=== PATIENT | male | born 1955 | race Caucasian/White ===

== ENCOUNTER 2017-07-26 09:00 | Outpatient (CLI) | payer BC ==
--- NOTE | 2017-07-28 17:33 | EKG ---
Test Reason : Blood Pressure : / mmHG Vent. Rate : 067 BPM Atrial Rate : 067 BPM P-R Int : 152 ms QRS Dur : 106 ms QT Int : 408 ms P-R-T Axes : 052 073 066 degrees QTc Int : 431 ms Normal sinus rhythm Normal ECG When compared with ECG of 07-SEP-2013 06:52, T wave amplitude has decreased in Anterior leads Confirmed by DR. Concepcion HILL ([id number]) on 07/28/2017 5:32:41 PM Referred By: AIDEE Confirmed By:DR. Concepcion HILL
== END 2017-07-26 09:01 | disposition home or self-care (01) ==
LOC: LABBT 09:00
PROVIDERS: ATTEND Orthopaedic Surgery
DX: Z01.818 Encounter for other preprocedural examination (principal); M17.12 Unilateral primary osteoarthritis, left knee
CPT/HCPCS: 87081; 93005; 93010

== ENCOUNTER 2017-07-26 09:15 | Inpatient (IN) | payer BC ==
[2017-07-26 11:59] VITALS: BMI 30.3
--- NOTE | 2017-08-04 15:42 | HP ---
HISTORY OF PRESENT ILLNESS: The patient is a 62-year-old male with a long history of progressive deg enerative arthritis of the left knee and wake up responsive, conservative treatment including rest, r estriction of activities, pain medication, several injections, and lifestyle adjustments. The pain i s now interfering with day-to-day activities including walking, working, getting dressed. PAST MEDICAL HISTORY: Please see the old chart. The patient has had previous right total knee repla cement 5 years ago with good results. He has a history of hypertension, atherosclerotic cardiovascul ar disease, and has bilateral lower extremity stents for which he takes Plavix. He also has a histor y of possible atrial fibrillation, hypothyroidism, and hepatitis A. CURRENT MEDICATIONS: , Crestor, Plavix, which he stopped 1 week preoperatively. Lisinopril, Mi rapex, and Flomax, Ambien, Wellbutrin, and hydrocodone. FAMILY HISTORY, SOCIAL HISTORY, REVIEW OF SYSTEMS: Otherwise unremarkable. PHYSICAL EXAMINATION: GENERAL: He is a healthy male. HEENT: Unremarkable. NECK: Supple. CHEST: Clear. HEART: Regular rate and rhythm. ABDOMEN: Soft, nontender. RECTAL/GENITAL: Deferred. EXTREMITIES: Pertinent findings on the left knee. There is puffiness but no definite effusion. The re is mild varus deformity. There is tenderness over the medial joint line. Range of motion is 5-11 5 degrees. There is flexion. There is no instability. I cannot palpate distal pulses, but go od capillary refill. He has a left antalgic gait. NEUROVASCULAR: Intact. LABORATORY AND X-RAY FINDINGS: X-rays of left knee reveal tricompartmental DJD and narrowing mediall y and laterally and benign chondral lesion of the proximal tibia, which is unchanged on serial x-rays . IMPRESSION: 1. Degenerative joint disease, left knee. 2. Status post right total knee replacement. 3. Peripheral vascular disease with bilateral lower extremity stents. 4. History of hypertension. PLAN: Left total knee replacement. The nature of the surgery, length of recovery, and potential com plications such as infection, loss of motion, incomplete relief, delayed wound healing, neurovascular injury, thromboembolic phenomena, possible transfusion, and need for revision discussed in detail. Because of the previous vascular stents, we will plan on not using a tourniquet during the procedure.
[2017-08-08] MEDS ORDERED: CEFAZOLIN/Water 2 GM/20 ML SYRINGE ONE (06:10)
[2017-08-08] MEDS ORDERED: Vancomycin HCl 1.5 GM in Sodium Chloride 0.9% 250 ML 300 ML IVPB SCH ×2 (06:15→18:00)
[2017-08-08] MEDS ORDERED: Morphine 2 MG/ML SYRINGE ONE (06:25)
[2017-08-08] MEDS ORDERED: Midazolam HCl 2 mg/2 ml Vial ONE (06:25)
[2017-08-08] MEDS ORDERED: Ropivacaine 0.2% HCl/PF 20 ML ONE (06:28)
[2017-08-08] MEDS ORDERED: Lidocaine 1% (PF) 30 ML VIAL ONE (06:28)
[2017-08-08] MEDS ORDERED: Lidocaine 1% w/Epinephrine 1:200K 30 ML VIAL ONE (06:32)
[2017-08-08] MEDS ORDERED: Bupivacaine/Epinephrine 0.25% 30 ML VIAL ONE (06:32)
[2017-08-08] MEDS ORDERED: Promethazine HCl 25 MG/ML VIAL IM PRN ×2 (07:12)
[2017-08-08] MEDS ORDERED: traMADol HCl 50 MG TAB PO PRN ×2 (07:12→09:59)
[2017-08-08] MEDS ORDERED: HYDROcodone/Acetaminophen 10/325 mg Tablet PO PRN ×3 (07:12→09:59)
[2017-08-08] MEDS ORDERED: Promethazine HCl 25 MG/ML VIAL SLOW IVP PRN ×2 (07:12→09:59)
[2017-08-08] MEDS ORDERED: Ropivacaine 0.2% 550 ML 550 ML NERVE BLCK SCH (07:12)
[2017-08-08] MEDS ORDERED: Morphine Sulfate 2 MG/ML SYRINGE SLOW IVP PRN (07:12)
[2017-08-08] MEDS ORDERED: Ondansetron HCl/PF 4 MG/2 ML Vial IVP PRN ×3 (07:12→09:59)
[2017-08-08] MEDS ORDERED: Zolpidem Tartrate 5 MG TAB PO PRN ×2 (07:12→09:59)
[2017-08-08] MEDS ORDERED: Morphine 10 MG/ML VIAL ONE (07:43)
[2017-08-08] MEDS ORDERED: Tranexamic Acid 1,000 MG in Sodium Chloride 0.9% 100 ML IVPB SCH ×2 (09:15→09:59)
[2017-08-08] MEDS ORDERED: Fentanyl 250 MCG/5 ML VIAL ONE (09:23)
[2017-08-08] MEDS ORDERED: Ropivacaine 0.5% HCl/PF (150 MG/30 ML VIAL) ONE (09:46)
[2017-08-08] MEDS ORDERED: Acetaminophen 325 MG TAB PO PRN (09:59)
[2017-08-08] MEDS ORDERED: Fentanyl 100 MCG/2 ML VIAL SLOW IVP PRN ×2 (09:59)
[2017-08-08] MEDS ORDERED: diphenhydrAMINE 25 MG CAP PO PRN (09:59)
[2017-08-08] MEDS ORDERED: FLUOXETINE HCL PO SCH (09:59)
[2017-08-08] MEDS: Fentanyl 100 MCG/2 ML VIAL IV PRN ×2 (10:30→21:32)
--- NOTE | 2017-08-08 10:40 | OP ---
DATE OF PROCEDURE: 08/08/2017 SURGEON: Magdiel Mattson M.D. VEHICLE SAFETY INSPECTOR: JOSE Hollingsworth. ANESTHESIA: General plus femoral sciatic nerve block. PREOPERATIVE DIAGNOSIS: Degenerative arthritis, left knee. POSTOPERATIVE DIAGNOSIS: Degenerative arthritis, left knee. PROCEDURES: His Left total knee replacement with computer-assisted navigation with cemented [employer] Triathlon components (#6 femur, #6 universal tibial baseplate with 11 mm CS plastic insert, and A38 a ll plastic patellar component). NARRATIVE REPORT: After satisfactory anesthesia was induced in the supine position, the patient was prepped and draped in routine manner. Sequential compression device was used on the non-operative le g throughout the procedure. The tourniquet was not used. He was approached through a gently curved medial parapatellar incision, it was carried down to subcutaneous tissues. Bleeding points controlle d with Bovie cautery. Medial parapatellar arthrotomy was performed, patella dislocated laterally and portions of the fat pad were excised for exposure. There was marked degenerative arthritis of the k nee, especially medially, with areas of exposed bone. Meniscal remnants and osteophytes were removed . Using the My[employer] pinless navigation system and the appropriate guides, the distal femoral and pro ximal tibial articular surfaces were excised to accept the trial components. It was felt that #6 fem oral component, #6 tibial baseplate with 9 mm CS plastic insert gave appropriate size, fit, and stabi lity. The patellar articular surface was excised to accept an all plastic A38 patellar component. T here was good range of motion and good patellar tracking. The trial components removed. The knee wa s copiously irrigated with the pulsatile lavage and bony surfaces thoroughly cleaned and dried. The permanent components were then cemented in a single stage using 1 package of cement premixed with 1 g topher of tobramycin powder. Excess cement was removed. There was again good fit and stability. The w ound was copiously irrigated. The skin was infiltrated with a mixture 0.25% Marcaine with epinephrin e and 1% lidocaine with epinephrine. The medial retinaculum and quadriceps mechanism was closed with interrupted #2 Vicryl and a running #2 Quill. Subcutaneous tissues were closed with a running subcu ticular 0 Quill and the skin closed with a running subcuticular 3-0 Monoderm and SurgiSeal skin adhes evan. A sterile bulky compressive dressing was applied and the patient awakened, taken to recovery ro om in stable condition. There were no apparent intraoperative complications. The estimated blood lo ss was 250 mL. The tourniquet time was zero.
--- NOTE | 2017-08-08 10:51 | PDOC.PN ---
- Subjective Encounter Start Date: 08/08/17 Encounter Start Time: 11:00 Subjective: no chest pain or sob -: left leg is still numb -: is able to move toes and extremities, has nerve block - Objective MAR Reviewed: Yes Vital Signs & Weight: Weight Weight 230 lb Phys Exam - Physical Examination HEENT: PERRLA, moist MMs Neck: no JVD, supple Respiratory: no wheezing, no rales Cardiovascular: RRR, no significant murmur Gastrointestinal: soft, non-tender, positive bowel sounds Musculoskeletal: no edema, pulses present Neurological: non-focal, moves all 4 limbs Psychiatric: A&O x 3 Dx/Plan (1) Status post left knee replacement Code(s): Z96.652 - PRESENCE OF LEFT ARTIFICIAL KNEE JOINT Status: Acute (2) PVD (peripheral vascular disease) Code(s): I73.9 - PERIPHERAL VASCULAR DISEASE, UNSPECIFIED Status: Chronic Comment: stents in B/L LE- (3) HTN (hypertension) Code(s): I10 - ESSENTIAL (PRIMARY) HYPERTENSION Status: Chronic Qualifiers: Hypertension type: essential hypertension Qualified Code(s): I10 - Essential (primary) hypertension (4) Dyslipidemia Code(s): E78.5 - HYPERLIPIDEMIA, UNSPECIFIED Status: Chronic (5) Hyperthyroidism Code(s): E05.90 - THYROTOXICOSIS, UNSP WITHOUT THYROTOXIC CRISIS OR STORM Status: Chronic Comment: f/u with Dr.Zia england in [facility] (6) Atrial fibrillation Code(s): I48.91 - UNSPECIFIED ATRIAL FIBRILLATION Status: Chronic Qualifiers: Atrial fibrillation type: paroxysmal Qualified Code(s): I48.0 - Paroxysmal atrial fibrillation - Plan on asp bid for dvt prophylaxis post knee surgery -: continue lisinopril, methimazole, flomax and crestor -: ropivacaine nr block, fentanyl, ultram and norco prn for pain -: will f/u * . Review of Systems - Medications/Allergies Allergies/Adverse Reactions: Allergies Allergy/AdvReac Type Severity Reaction Status Date / Time No Known Drug Allergies Allergy Verified 07/26/17 11:59 Medications: Current Medications Acetaminophen (Tylenol) 650 mg PO Q4H PRN PRN Reason: SMALL/ T > 101F; Mild Pain (1-3) Hydrocodone Bitart/Acetaminophen (Redgranite 10/325) 1 tab PO Q4H PRN PRN Reason: Pain (1-3) Hydrocodone Bitart/Acetaminophen (Redgranite 10/325) 2 tab PO Q4H PRN PRN Reason: PAIN (4-6) Aspirin (Ecotrin) 81 mg PO BID [facility] Bupropion HCl (Wellbutrin Xl) 150 mg PO QAM [facility] Cefazolin Sodium (Ancef) 2 gm SLOW IVP 0000,1600 [facility] Stop: 08/09/17 00:01 Diphenhydramine HCl (Benadryl) 25 mg PO Q6H PRN PRN Reason: Itching Fentanyl (Sublimaze) 50 mcg IV Q1H PRN PRN Reason: BREAKTHROUGH PAIN Last Admin: 08/08/17 10:30 Dose: 50 mcg Ferrous Gluconate (Fergon) 324 mg PO BID [facility] Fluoxetine HCl (Prozac) 20 mg PO DAILY [facility] Ropivacaine (Ropivacaine 0.2% 550 Ml) 550 mls @ 0 mls/hr NERVE BLCK INF [facility] PRN Reason: As Directed Tranexamic Acid 1,000 mg/ (Sodium Chloride) 110 mls @ 200 mls/hr IVPB ONE [facility] Stop: 08/08/17 12:00 Sodium Chloride (Normal Saline 0.9%) 1,000 mls @ 100 mls/hr IV .Q10H [facility] Last Admin: 08/08/17 10:54 Dose: Not Given Tranexamic Acid 1,000 mg/ (Sodium Chloride) 110 mls @ 200 mls/hr IVPB ONE [facility] Stop: 08/08/17 12:00 Vancomycin HCl 1.5 gm/ Sodium (Chloride) 300 mls @ 200 mls/hr IVPB 1800 [facility] Stop: 08/08/17 19:29 Iron/Minerals/Multivitamins (Theragran M) 1 tab PO DAILY [facility] Ketorolac Tromethamine (Toradol) 30 mg IVP Q6H PRN PRN Reason: Moderate Pain (4-6) Stop: 08/11/17 07:13 Lisinopril (Zestril) 20 mg PO QAM [facility] Methimazole () 5 mg PO QAM [facility] Ondansetron HCl (Zofran) 4 mg IVP Q6H PRN PRN Reason: Nausea/Vomiting Pramipexole Dihydrochloride (Mirapex) 2 mg PO HS SOO Promethazine HCl (Phenergan) 12.5 mg IM Q4H PRN PRN Reason: Nausea Rosuvastatin Calcium (Crestor) 20 mg PO HS SOO Senna/Docusate Sodium (Senokot S) 2 tab PO BID SOO Sodium Chloride (Flush - Normal Saline) 10 ml IVF Q12HR [facility] Last Admin: 08/08/17 10:54 Dose: Not Given Sodium Chloride (Flush - Normal Saline) 10 ml IVF PRN PRN PRN Reason: Saline Flush Sodium Chloride (Flush - Normal Saline) 10 ml IVF PRN PRN PRN Reason: Saline Flush Tamsulosin HCl (Flomax) 0.4 mg PO HS SOO Tramadol HCl (Ultram) 50 mg PO Q6H PRN PRN Reason: Mild Pain (1-3) Tramadol HCl (Ultram) 100 mg PO Q6H PRN PRN Reason: Moderate Pain 4-6 Zolpidem Tartrate (Ambien) 5 mg PO HSPRN PRN PRN Reason: Insomnia
[2017-08-08] MEDS: Sodium Chloride 0.9% 1,000 ML IV SCH ×3 (10:54→20:51)
--- NOTE | 2017-08-08 11:35 | RAD ---
LEFT KNEE 2 VIEWS: Date: 08/08/17 HISTORY: Status post arthroplasty. COMPARISON: None. FINDINGS: There are postoperative changes compatible with left knee arthroplasty. Alignment is near anatomic. V ascular stent is noted. IMPRESSION: Postoperative changes. POS: HAYDE
[2017-08-08] MEDS: HYDROcodone/Acetaminophen 10/325 mg Tablet PO PRN ×3 (11:40→20:48)
[2017-08-08] MEDS: Ketorolac Tromethamine 30 MG/ML VIAL IVP PRN ×2 (13:24→20:48)
[2017-08-08] MEDS ORDERED: Ketorolac Tromethamine 30 MG/ML VIAL IVP SCH (14:00)
[2017-08-08] MEDS ORDERED: Ketorolac Tromethamine 30 MG/ML VIAL ONE (15:10)
[2017-08-08] MEDS ORDERED: Ondansetron HCl/PF 4 MG/2 ML Vial ONE (15:10)
[2017-08-08] MEDS ORDERED: Propofol 200 MG/20 ML VIAL ONE (15:10)
[2017-08-08] MEDS ORDERED: Lidocaine 1% PF 5 ML VIAL ONE (15:10)
[2017-08-08] MEDS: CEFAZOLIN/Water 2 GM/20 ML SYRINGE SLOW IVP SCH (16:20)
[2017-08-08] MEDS: traMADol HCl 50 MG TAB PO PRN (20:16)
[2017-08-08] MEDS: Pramipexole Di-HCl 1 MG TAB PO SCH (20:48)
[2017-08-08] MEDS: Aspirin 81 mg Enteric Coated Tablet PO SCH (20:49)
[2017-08-08] MEDS: Tamsulosin HCl 0.4 MG CAP PO SCH (20:49)
[2017-08-08] MEDS: Rosuvastatin 20 MG TAB PO SCH (20:49)
[2017-08-09] MEDS: CEFAZOLIN/Water 2 GM/20 ML SYRINGE SLOW IVP SCH (00:23)
[2017-08-09] MEDS: Fentanyl 100 MCG/2 ML VIAL IV PRN ×3 (00:25→09:18)
[2017-08-09] MEDS: Sodium Chloride 0.9% 1,000 ML IV SCH ×2 (01:24→14:51)
[2017-08-09] MEDS: HYDROcodone/Acetaminophen 10/325 mg Tablet PO PRN ×2 (02:03→05:53)
[2017-08-09] MEDS: traMADol HCl 50 MG TAB PO PRN ×2 (03:42→09:14)
[2017-08-09] MEDS: Ketorolac Tromethamine 30 MG/ML VIAL IVP PRN (05:56)
[2017-08-09 06:04] LABS: Hemoglobin 12.7 g/dL (14.0-18.0); Mean Corpuscular HGB CONC 32.4 g/dL (32.0-36.0); Mean Corpuscular Hemoglobin 30.2 pg (27.0-31.0); Mean Corpuscular Volume 93.4 fl (80.0-94.0); Mean Platelet Volume 6.9 fL (7.4-10.4); Platelet Count 248 thou/uL (130-400); RBC Distribution Width 12.5 % (11.5-14.5); Red Blood Cell (RBC) Count 4.21 mill/uL (4.70-6.10); White Blood Cell (WBC) Count 11.6 thou/uL (4.8-10.8)
[2017-08-09] MEDS: Multivitamin W/ Minerals 1 TAB PO SCH (08:16)
[2017-08-09] MEDS: Ferrous Gluconate 324 MG TAB PO SCH ×2 (08:16→21:30)
[2017-08-09] MEDS: Aspirin 81 mg Enteric Coated Tablet PO SCH ×2 (08:16→21:31)
[2017-08-09] MEDS: Methimazole 5 MG TAB PO SCH (08:17)
[2017-08-09] MEDS: Bupropion 150 MG XL TAB PO SCH (08:17)
[2017-08-09] MEDS: FLUoxetine HCl 20 MG CAP PO SCH (08:17)
[2017-08-09] MEDS: Senokot S 8.6-50 MG TAB PO SCH ×2 (08:17→21:31)
[2017-08-09] MEDS ORDERED: Lisinopril 20 MG TAB PO SCH (09:00)
[2017-08-09] MEDS ORDERED: Ondansetron HCl/PF 4 MG/2 ML Vial IVP PRN (10:56)
[2017-08-09] MEDS ORDERED: Promethazine HCl 25 MG/ML VIAL IM PRN (10:56)
[2017-08-09] MEDS ORDERED: Fentanyl 5000 MCG/250 ML CADD IV PRN (10:56)
[2017-08-09] MEDS ORDERED: diphenhydrAMINE 50 MG/ML VIAL IM/IV PRN (10:56)
[2017-08-09] MEDS ORDERED: Zolpidem Tartrate 5 MG TAB PO PRN (10:56)
[2017-08-09] MEDS ORDERED: Naloxone HCl 0.4 mg/ml Vial IV PRN (10:56)
[2017-08-09] MEDS ORDERED: diphenhydrAMINE 25 MG CAP PO PRN (10:56)
[2017-08-09] MEDS: Acetaminophen 1,000 MG in Premix Bag 1 BAG IVPB SCH ×2 (11:04→18:13)
[2017-08-09] MEDS: fentaNYL Citrate/PF 2,000 MCG in Sodium Chloride 0.9% 60 ML IV SCH ×2 (11:22→19:17)
[2017-08-09] MEDS: Ketorolac Tromethamine 30 MG/ML VIAL IVP SCH ×2 (11:30→18:12)
--- NOTE | 2017-08-09 16:53 | PDOC.PN ---
- Subjective Encounter Start Date: 08/09/17 Encounter Start Time: 11:00 Patient is seen today, alert and oriented. C/o severe pain to right Knee post Op , he is given multiple pain meds remains 9/10 intensity, low pain tolerance. - Objective MAR Reviewed: Yes Vital Signs & Weight: Vital Signs (12 hours) Temp Pulse Resp BP BP Pulse Ox 08/09/17 15:09 98.2 F 78 16 157/81 H 96 08/09/17 12:00 72 08/09/17 11:22 72 16 154/71 H 97 08/09/17 11:15 97.5 F L 71 18 164/73 H 94 L 08/09/17 08:17 170/74 H 08/09/17 07:50 98.0 F 81 18 93 L 08/09/17 07:30 98.0 F 81 18 170/74 H 90 L Weight Admit Weight 230 lb Weight 230 lb I&O: 08/08/17 08/09/17 08/10/17 06:59 06:59 06:59 Intake Total 2644 Output Total 1600 Balance 1044 Result Diagrams: 08/09/17 05:35 Radiology Reviewed by me: Yes EKG Reviewed by me: Yes Phys Exam - Physical Examination HEENT: PERRLA, moist MMs Neck: no nodes, no JVD Respiratory: no wheezing, no rales Cardiovascular: RRR, no significant murmur Gastrointestinal: soft, non-tender Musculoskeletal: no edema, pulses present Dx/Plan (1) Status post left knee replacement Code(s): Z96.652 - PRESENCE OF LEFT ARTIFICIAL KNEE JOINT Status: Acute Comment: Pain is poorly controlled, Discussed with ortho, plan for [employer] morphine (2) Dyslipidemia Code(s): E78.5 - HYPERLIPIDEMIA, UNSPECIFIED Status: Chronic Comment: continue with Statin. (3) HTN (hypertension) Code(s): I10 - ESSENTIAL (PRIMARY) HYPERTENSION Status: Chronic Qualifiers: Hypertension type: essential hypertension Qualified Code(s): I10 - Essential (primary) hypertension Comment: poorly controlled likely from pain, increased lisinopril to 20mg BID (4) Hyperthyroidism Code(s): E05.90 - THYROTOXICOSIS, UNSP WITHOUT THYROTOXIC CRISIS OR STORM Status: Chronic Comment: f/u with Dr.Zia england in [facility] (5) Atrial fibrillation Code(s): I48.91 - UNSPECIFIED ATRIAL FIBRILLATION Status: Chronic Qualifiers: Atrial fibrillation type: paroxysmal Qualified Code(s): I48.0 - Paroxysmal atrial fibrillation - Plan cont current plan of care, plan discussed w/ family, PT/OT, community mental health social worker, respiratory therapy, incentive spirometry, DVT proph w/lovenox * . - Discharge Day Encounter end time: 11:35 Review of Systems - Review of Systems Eyes: negative: Pain, Vision Change, Conjunctivae Inflammation, Eyelid Inflammation, Redness, Other ENT: negative: Ear Pain, Ear Discharge, Nose Pain, Nose Discharge, Nose Congestion, Mouth Pain, Mouth Swelling, Throat Pain, Throat Swelling, Other Respiratory: negative: Cough, Dry, Shortness of Breath, Hemoptysis, SOB with Excertion, Pleuritic Pain, Sputum, Wheezing Cardiovascular: negative: chest pain, palpitations, orthopnea, paroxysmal nocturnal dyspnea, edema, light headedness, other Gastrointestinal: negative: Nausea, Vomiting, Abdominal Pain, Diarrhea, Constipation, Melena, Hematochezia, Other Musculoskeletal: Leg Pain Skin: negative: Rash, Lesions, Cameron, Bruising, Other Neurological: negative: Weakness, Numbness, Incoordination, Change in Speech, Confusion, Seizures, Other - Medications/Allergies Allergies/Adverse Reactions: Allergies Allergy/AdvReac Type Severity Reaction Status Date / Time No Known Drug Allergies Allergy Verified 07/26/17 11:59 Medications: Current Medications Acetaminophen (Tylenol) 650 mg PO Q4H PRN PRN Reason: SMALL/ T > 101F; Mild Pain (1-3) Aspirin (Ecotrin) 81 mg PO BID [facility] Last Admin: 08/09/17 08:16 Dose: 81 mg Bupropion HCl (Wellbutrin Xl) 150 mg PO QAM [facility] Last Admin: 08/09/17 08:17 Dose: 150 mg Diphenhydramine HCl (Benadryl) 25 mg IM/IV Q3H PRN PRN Reason: Itching Diphenhydramine HCl (Benadryl) 25 mg PO Q3H PRN PRN Reason: Itching Ferrous Gluconate (Fergon) 324 mg PO BID [facility] Last Admin: 08/09/17 08:16 Dose: 324 mg Fluoxetine HCl (Prozac) 20 mg PO DAILY [facility] Last Admin: 08/09/17 08:17 Dose: 20 mg Ropivacaine (Ropivacaine 0.2% 550 Ml) 550 mls @ 0 mls/hr NERVE BLCK INF [facility] PRN Reason: As Directed Sodium Chloride (Normal Saline 0.9%) 1,000 mls @ 100 mls/hr IV .Q10H [facility] Last Admin: 08/09/17 14:51 Dose: Not Given Acetaminophen 1,000 mg/ Device 100 mls @ 400 mls/hr IVPB Q6HR [facility] Stop: 08/12/17 12:01 Last Admin: 08/09/17 11:04 Dose: 100 mls Fentanyl Citrate 2,000 mcg/ (Sodium Chloride) 100 mls @ 0 mls/hr IV INF [facility] PRN Reason: As Directed Last Admin: 08/09/17 11:22 Dose: 100 mls Iron/Minerals/Multivitamins (Theragran M) 1 tab PO DAILY [facility] Last Admin: 08/09/17 08:16 Dose: 1 tab Ketorolac Tromethamine (Toradol) 30 mg IVP Q6HR [facility] Stop: 08/11/17 06:01 Last Admin: 08/09/17 11:30 Dose: 30 mg Lisinopril (Zestril) 20 mg PO BID [facility] Methimazole () 5 mg PO QAM [facility] Last Admin: 08/09/17 08:17 Dose: 5 mg Naloxone HCl (Narcan) 0.2 mg IV Q5MIN PRN PRN Reason: RR <8 or pt obtun/unarousable Ondansetron HCl (Zofran) 4 mg IVP Q6H PRN PRN Reason: Nausea/Vomiting Pramipexole Dihydrochloride (Mirapex) 2 mg PO HS [facility] Last Admin: 08/08/17 20:48 Dose: 2 mg Promethazine HCl (Phenergan) 12.5 mg IM Q4H PRN PRN Reason: Nausea/Vomiting Rosuvastatin Calcium (Crestor) 20 mg PO [facility] Last Admin: 08/08/17 20:49 Dose: 20 mg Senna/Docusate Sodium (Senokot S) 2 tab PO BID [facility] Last Admin: 08/09/17 08:17 Dose: 2 tab Sodium Chloride (Flush - Normal Saline) 10 ml IVF Q12HR [facility] Last Admin: 08/09/17 08:18 Dose: 10 ml Sodium Chloride (Flush - Normal Saline) 10 ml IVF PRN PRN PRN Reason: Saline Flush Tamsulosin HCl (Flomax) 0.4 mg PO HS SOO Last Admin: 08/08/17 20:49 Dose: 0.4 mg Zolpidem Tartrate (Ambien) 5 mg PO HSPRN PRN PRN Reason: Insomnia
[2017-08-09] MEDS: Pramipexole Di-HCl 1 MG TAB PO SCH (21:30)
[2017-08-09] MEDS: Tamsulosin HCl 0.4 MG CAP PO SCH (21:31)
[2017-08-09] MEDS: Rosuvastatin 20 MG TAB PO SCH (21:31)
[2017-08-09] MEDS: Lisinopril 20 MG TAB PO SCH (21:31)
[2017-08-10] MEDS: Acetaminophen 1,000 MG in Premix Bag 1 BAG IVPB SCH ×4 (00:43→11:59)
[2017-08-10] MEDS: Ketorolac Tromethamine 30 MG/ML VIAL IVP SCH ×5 (00:43→11:58)
[2017-08-10] MEDS: Sodium Chloride 0.9% 1,000 ML IV SCH ×2 (02:15→13:55)
[2017-08-10] MEDS: Senokot S 8.6-50 MG TAB PO SCH (08:25)
[2017-08-10] MEDS: Ferrous Gluconate 324 MG TAB PO SCH (08:25)
[2017-08-10] MEDS: Lisinopril 20 MG TAB PO SCH (08:26)
[2017-08-10] MEDS: Multivitamin W/ Minerals 1 TAB PO SCH (08:27)
[2017-08-10] MEDS: Bupropion 150 MG XL TAB PO SCH (08:27)
[2017-08-10] MEDS: FLUoxetine HCl 20 MG CAP PO SCH (08:27)
[2017-08-10] MEDS: Methimazole 5 MG TAB PO SCH (08:27)
[2017-08-10] MEDS: Aspirin 81 mg Enteric Coated Tablet PO SCH (08:28)
[2017-08-10] MEDS ORDERED: HYDROcodone/Acetaminophen 10/325 mg Tablet PO PRN ×2 (08:56)
[2017-08-10] MEDS ORDERED: traMADol HCl 50 MG TAB PO PRN ×2 (08:57)
[2017-08-10 11:50] VITALS: TEMP 98.1
[2017-08-10 13:37] VITALS: BP 164/80
== END 2017-08-10 14:17 | disposition home or self-care (01) | DRG 470 ==
LOC: SURG A 08-08 05:30 → SJJU 08-08 09:59
PROVIDERS: ADMIT Orthopaedic Surgery; ATTEND Orthopaedic Surgery
PROC: 0SRD0J9 Replacement of Left Knee Joint with Synthetic Substitute, Cemented, Open Approach (ICD-10-PCS; principal; 2017-08-08)
PROC: 3E0T3BZ Introduction of Anesthetic Agent into Peripheral Nerves and Plexi, Percutaneous Approach (ICD-10-PCS; 2017-08-08)
DX: M17.12 Unilateral primary osteoarthritis, left knee (principal); I48.0 Paroxysmal atrial fibrillation; I10 Essential (primary) hypertension; Z96.651 Presence of right artificial knee joint; I25.10 Atherosclerotic heart disease of native coronary artery without angina pectoris; Z79.01 Long term (current) use of anticoagulants; I73.9 Peripheral vascular disease, unspecified; E78.5 Hyperlipidemia, unspecified; E05.90 Thyrotoxicosis, unspecified without thyrotoxic crisis or storm; G47.00 Insomnia, unspecified; F32.9 Major depressive disorder, single episode, unspecified; R73.03 Prediabetes; Z87.898 Personal history of other specified conditions
CPT/HCPCS: 36415; 85027; A4216; A4306; C1713; C1776; G8978-GP-CL; G8979-GP-CJ; J0131; J1885; J2001; J2250; J2270; J2405; J2704; J2795; J3010; J3370; J7050

== ENCOUNTER 2017-08-02 08:19 | Outpatient (CLI) | payer BC ==
[2017-08-02 08:57] LABS: Hemoglobin 15.3 g/dL (14.0-18.0); Mean Corpuscular HGB CONC 33.3 g/dL (32.0-36.0); Mean Corpuscular Volume 92.9 fl (80.0-94.0); Mean Platelet Volume 6.9 fL (7.4-10.4); Platelet Count 271 thou/uL (130-400); RBC Distribution Width 12.6 % (11.5-14.5); Red Blood Cell (RBC) Count 4.94 mill/uL (4.70-6.10); White Blood Cell (WBC) Count 6.7 thou/uL (4.8-10.8)
[2017-08-02 08:59] LABS: Bilirubin Negative (Negative); Blood, Urine Negative (Negative); Clarity CLEAR (Clear); Glucose, Urine (Dipstick) Negative (Negative); Leukocyte Negative (Negative); Nitrite Negative (Negative); Protein, Urine (Dipstick) Negative (Neg-Trace); Specific Gravity, Urine 1.026 (1.002-1.036); pH, Urine 5.5 (5.0-9.0)
[2017-08-02 09:01] LABS: Bacteria/HPF None Seen HPF (None Seen); Hyaline Casts/LPF 0-3 HYALINE CAST LPF (0-3 Hyaline); RBC/HPF 0-3 HPF (0-3); Squamous Epithelial None Seen HPF (0-3); WBC/HPF 0-3 HPF (0-3)
[2017-08-02 09:03] LABS: PTT 29.8 SEC (22.9-36.1); Prothrombin Time 13.7 SEC (12.0-14.7)
[2017-08-02 09:19] LABS: Anion Gap 13 mmol/L (10-20); BUN (Urea Nitrogen) 21 mg/dL (8.4-25.7); Calc. Creatinine Clearance 0 mL/min (70-130); Calcium 9.4 mg/dL (7.8-10.44); Carbon Dioxide 27 mmol/L (23-31); Chloride 104 mmol/L (98-107); Estimated GFR-MDRD 80; Glucose 143 mg/dL (80-115); Potassium 4.1 mmol/L (3.5-5.1); Sodium 140 mmol/L (136-145)
== END 2017-08-02 08:20 | disposition home or self-care (01) ==
LOC: LABBT 08:19
PROVIDERS: ATTEND Orthopaedic Surgery
DX: Z01.818 Encounter for other preprocedural examination (principal); M17.12 Unilateral primary osteoarthritis, left knee
CPT/HCPCS: 80048; 81001; 85027; 85610; 85730; 86850; 86900; 86901; 87081

== ENCOUNTER 2017-08-12 13:10 | Observation (INO) | payer BC ==
[2017-08-12] MEDS ORDERED: Morphine 4 MG/ML VIAL ONE (13:55)
[2017-08-12] MEDS ORDERED: Acetaminophen 500 MG TAB ONE (13:55)
[2017-08-12] MEDS ORDERED: Ketorolac Tromethamine 30 MG/ML VIAL ONE (13:55)
[2017-08-12] MEDS ORDERED: Lidocaine 1% (PF) 30 ML VIAL ONE (14:23)
[2017-08-12 14:59] LABS: #Basophils 0.1 thou/uL (0.0-0.2); #Eosinphils 0.2 thou/uL (0.0-0.7); #Monocytes 1.2 thou/uL (0.11-0.59); #Neutrophils 7.2 thou/uL (1.40-6.50); %Basophils 0.8 % (0.0-1.0); %Lymphocytes 18.4 % (21.0-51.0); %Monocytes 10.9 % (0.0-10.0); %Neutrophils 67.9 % (42.0-75.0); Hemoglobin 12.3 g/dL (14.0-18.0); Mean Corpuscular HGB CONC 32.9 g/dL (32.0-36.0); Mean Corpuscular Hemoglobin 30.9 pg (27.0-31.0); Mean Corpuscular Volume 93.9 fl (80.0-94.0); Mean Platelet Volume 6.5 fL (7.4-10.4); Platelet Count 334 thou/uL (130-400); RBC Distribution Width 12.3 % (11.5-14.5); Red Blood Cell (RBC) Count 3.99 mill/uL (4.70-6.10); White Blood Cell (WBC) Count 10.6 thou/uL (4.8-10.8)
[2017-08-12 15:19] LABS: ALT (SGPT) 12 U/L (8-55); AST (SGOT) 20 U/L (5-34); Albumin 3.6 g/dL (3.4-4.8); Alkaline Phosphatase 56 U/L (40-150); Anion Gap 12 mmol/L (10-20); BUN (Urea Nitrogen) 19 mg/dL (8.4-25.7); Bilirubin, Total 0.6 mg/dL (0.2-1.2); Calc. Creatinine Clearance 0 mL/min (70-130); Calcium 9.4 mg/dL (7.8-10.44); Carbon Dioxide 28 mmol/L (23-31); Chloride 101 mmol/L (98-107); Estimated GFR-MDRD Greater than 90; Globulin 3.1 g/dL (2.4-3.5); Glucose 105 mg/dL (80-115); Potassium 4.4 mmol/L (3.5-5.1); Protein, Total 6.7 g/dL (5.8-8.1); Sodium 137 mmol/L (136-145)
[2017-08-12] MEDS ORDERED: Acetaminophen 325 MG TAB PO PRN (15:33)
[2017-08-12] MEDS ORDERED: HYDROcodone/Acetaminophen 10/325 mg Tablet PO PRN (15:33)
--- NOTE | 2017-08-12 15:45 | ULT ---
LEFT LOWER EXTREMITY VENOUS ULTRASOUND WITH DOPPLERE: Date: 08/12/17 HISTORY: Status post knee replacement 4 days ago. Pain. COMPARISON: None. TECHNIQUE: Priest scale, color flow, Doppler imaging, and spectral waveform analysis performed of the left lower e xtremity deep venous system. FINDINGS: There is compressibility, presence of flow, and augmentation in the common femoral, femoral vein, and popliteal vein. There is flow in the greater saphenous vein, profunda vein, and posterior tibial vei n. IMPRESSION: No evidence of thrombus in the left lower extremity deep venous system. POS: JIMMIE
[2017-08-12 15:52] LABS: BF Color Red; Body Fluid Source SYNOVIAL FLUID; Clarity Cloudy/Turbid (Clear); RBC Background Count 0.003; RBC Count-Automated 171000 /cumm; Tube # EDTA; WBC Background Count 0.01; WBC/NonHematic-Auto 2420 /cumm
--- NOTE | 2017-08-12 16:13 | OP ---
DATE OF PROCEDURE: 08/12/2017 PREOPERATIVE DIAGNOSIS: Possible septic left knee, status post total knee arthroplasty. POSTOPERATIVE DIAGNOSIS: Possible septic left knee, status post total knee arthroplasty. SURGICAL PROCEDURE: Aspiration of left knee. ANESTHESIA: 3 mL of 1% lidocaine plain local. SURGEON: Bradly Ortega M.D. INDICATIONS: The patient is a pleasant 62-year-old gentleman now 4 days status post total knee arthr oplasty, who presents with a 24-hour history of increasing pain and redness along the medial thigh. After discussion with patient including risks and benefits, we decided to proceed with an aspirate of the knee to rule out intra-articular infection. DESCRIPTION OF PROCEDURE: After obtaining informed consent, a sterile prep was performed of the late ral thigh which was the side of the knee away from the cellulitic response. Following a Betadine pre p, local skin anesthesia was achieved with 3 mL of 1% lidocaine. Next, an 18 gauge needle was introd uced into the knee and approximately 15 mL of bloody fluid was aspirated from the knee. This fluid g iven to nursing for labs to include cell count, glucose, protein, Gram stain, culture and sensitivity including acid fast bacilli and fungus. Following aspiration, skin was cleaned with alcohol and gau ze and tape dressing applied to the aspiration site. There were no complications. The patient nilton ated the procedure well.
[2017-08-12 16:24] LABS: BF Segmented Neutrophils 97 %; Cell Count Non Hematic 2 %; Lymphocytes 1 %
[2017-08-12 16:30] LABS: Synovial Fluid, Protein 3.8 g/dL (Not Available)
--- NOTE | 2017-08-12 16:36 | HP ---
DATE OF ADMISSION: To observation status is going to be 08/12/2017 BRIEF HISTORY OF PRESENT ILLNESS: Patient is a pleasant 62-year-old gentleman who is now status post left total knee arthroplasty on 08/08/[address] Magdiel Mattson. The patient had an uneventful surge ry and was discharged to home on 08/10/2017. He now presents to the emergency room with a 24-hour hi story of increasing medial thigh pain and redness. He does not report significant fevers, but does h ave a woody induration along the medial thigh that concerned his physical therapist and as such, the patient now presents to the emergency room. The patient has had a CBC drawn and has a white count of 10. That said, he does clearly have erythema along the medial thigh. Workup in the emergency room has included an aspiration of the knee as well as an ordered ultrasound for the leg to rule out venou s thrombosis. These results are not back yet. The patient now is being placed on observation status while we await the outcome of the studies and to begin antibiotic therapy for presumed cellulitis. PAST MEDICAL HISTORY: Hyperlipidemia, high cholesterol, hypertension, peripheral vascular disease. PAST SURGICAL HISTORY: Includes cholecystectomy, bilateral leg stents, and recent left total knee ar throplasty. MEDICATIONS: Prozac, Crestor, Plavix, lisinopril, Ambien, [place], methimazole, Flomax. ALLERGIES: None known. FAMILY HISTORY: Noncontributory. SOCIAL HISTORY: The patient does not have a smoking history. Denies alcohol use or drug use. PHYSICAL EXAMINATION: VITAL SIGNS: Temperature of 98.5, heart rate of 73, respiratory rate of 16, and blood pressure 124/7 5. HEENT: Atraumatic, normocephalic. HEART: Shows a regular rate and rhythm without murmur. LUNGS: Clear to auscultation bilaterally with good breath sounds. ABDOMEN: Round and nontender. Pelvis is stable. EXTREMITIES: Remarkable for left lower extremity with a midline anterior knee incision from total kn ee arthroplasty. There are some areas of dependent bruising. He was found to have medial thigh eryt yazan with a woody type feel to the skin and pain to palpation at the area of redness. His calf is so ft and nontender. Distal neurovascular exam is intact. LABORATORY DATA: He was found to have a white count of 10.6, hematocrit 37.5 and 334,000 platelets. He has a sedimentation rate of 33. He was found to have a C-reactive protein of 18.68. The [facility] complete metabolic panel is normal. ASSESSMENT: A 62-year-old gentleman with recent history of left total knee arthroplasty, now with me dial erythema and woody induration of the skin consistent with cellulitis. PLAN: At this time, patient is being placed on observation status. An aspiration of the knee was pe rformed with Betadine prep. Pending the outcome of this fluid analysis with chemistries, glucose and Gram stain, we will make decision on whether further intervention of the knee is necessary. The pat ient will be given regular diet, placed n.p.o. after midnight should the labs come back suspicious fo r intra-articular infection. I have discussed the case with Dr. Mattson by phone. Patient appears com fortable with our discussion and plan.
[2017-08-12] MEDS: Vancomycin HCl 1 GM in Premix Bag 1 BAG IVPB SCH (19:53)
[2017-08-12] MEDS: HYDROcodone/Acetaminophen 10/325 mg Tablet PO PRN (20:18)
[2017-08-12] MEDS ORDERED: Zolpidem Tartrate 5 MG TAB PO SCH (21:00)
[2017-08-12] MEDS ORDERED: Tamsulosin HCl 0.4 MG CAP PO SCH (21:00)
[2017-08-12] MEDS ORDERED: Pramipexole Di-HCl 1 MG TAB PO SCH (21:00)
[2017-08-12] MEDS: Clindamycin/D5W 900 MG in Premix Bag 1 BAG IVPB SCH (23:24)
[2017-08-13] MEDS: Clindamycin/D5W 900 MG in Premix Bag 1 BAG IVPB SCH ×2 (01:25→05:06)
[2017-08-13 04:38] VITALS: BMI 31.8
[2017-08-13 05:00] LABS: #Eosinphils 0.3 thou/uL (0.0-0.7); #Lymphocytes 1.6 thou/uL (1.20-3.40); #Neutrophils 6.1 thou/uL (1.40-6.50); %Basophils 0.4 % (0.0-1.0); %Eosinophils 2.9 % (0.0-10.0); %Lymphocytes 17.9 % (21.0-51.0); %Monocytes 10.9 % (0.0-10.0); %Neutrophils 67.8 % (42.0-75.0); Hemoglobin 11.3 g/dL (14.0-18.0); Mean Corpuscular HGB CONC 33.3 g/dL (32.0-36.0); Mean Corpuscular Hemoglobin 31.5 pg (27.0-31.0); Mean Corpuscular Volume 94.6 fl (80.0-94.0); Platelet Count 327 thou/uL (130-400); RBC Distribution Width 12.2 % (11.5-14.5); Red Blood Cell (RBC) Count 3.59 mill/uL (4.70-6.10)
[2017-08-13] MEDS: Vancomycin HCl 1 GM in Premix Bag 1 BAG IVPB SCH (05:07)
[2017-08-13] MEDS ORDERED: Methimazole 5 MG TAB PO SCH (09:00)
[2017-08-13] MEDS ORDERED: Lisinopril 20 MG TAB PO SCH (09:00)
[2017-08-13] MEDS ORDERED: Bupropion 150 MG XL TAB PO SCH (09:00)
[2017-08-13] MEDS ORDERED: Rosuvastatin 20 MG TAB PO SCH (09:00)
[2017-08-13] MEDS: HYDROcodone/Acetaminophen 10/325 mg Tablet PO PRN (09:16)
[2017-08-13 11:43] VITALS: BP 148/79; TEMP 98
[2017-08-16 16:16] LABS: Fungus Stain Final report (.)
== END 2017-08-13 12:00 | disposition home or self-care (01) ==
LOC: ERS 13:10 → SURG B 19:24
PROVIDERS: ADMIT Orthopaedic Surgery; ATTEND Orthopaedic Surgery
PROC: 0S9D3ZZ Drainage of Left Knee Joint, Percutaneous Approach (ICD-10-PCS; principal; 2017-08-13)
DX: R52 Pain, unspecified (principal); E78.5 Hyperlipidemia, unspecified; E78.00 Pure hypercholesterolemia, unspecified; I10 Essential (primary) hypertension; I73.9 Peripheral vascular disease, unspecified; Z79.899 Other long term (current) drug therapy; Z96.652 Presence of left artificial knee joint; Z90.49 Acquired absence of other specified parts of digestive tract; Z98.890 Other specified postprocedural states
CPT/HCPCS: 36415; 80053; 82945; 84157; 85025; 85060; 85652; 86140; 87040; 87070; 87102; 87116; 87205; 87206; 89051; 96361; 96365; 96375; G0378; J1885; J2001; J2270; J3370; J3490

== ENCOUNTER 2018-02-03 08:24 | Outpatient (CLI) | payer BC ==
--- NOTE | 2018-02-03 11:03 | CT ---
CT ANGIOGRAM ABDOMEN AND PELVIS WITH IV CONTRAST AND 3D RECONSTRUCTIONS: CT ANGIOGRAM BILATERAL LOWER EXTREMITIES WITH RUNOFF TO THE FEET WITH IV CONTRAST AND ED RECONSTRUCTI ONS: 02/03/2018 HISTORY: Right leg claudication. Bilateral leg pain. History of bilateral knee replacements. COMPARISON: CTA abdomen on 09/06/2013. FINDINGS: ABDOMEN AND PELVIS: Mild vascular calcifications are seen in the abdominal aorta and involving the i audelia arteries. There is a right common iliac artery stent, which does appear patent. The celiac and superior mesenteric arteries are patent. The origin of the JENNIFER is not well delineated but is also probably patent. There are two patent bilateral renal arteries visualized. The visualized lung bases are clear. Post cholecystectomy changes are noted. There is a subcentimeter, pxj-dffop-cl-characterize, hypoden se lesion seen at the lateral segment of the left hepatic lobe, stable from prior exam. A subtle, ir regular area of enhancement at the lateral aspect of the right hepatic lobe is seen. This was also p resent on the prior exam but is more conspicuous on the present study. This does not have well defin ed margins and could be related to transient hepatic arterial difference due to the arterial phase of imaging. Subcentimeter, mrj-onwsm-zl-characterize, hypodense lesions are seen in each kidney. A nonobstructin g left renal calculus is again seen. The spleen, pancreas, bilateral adrenal glands, and urinary bladder demonstrate a normal CT appearanc e. The prostate gland is mildly enlarged in transverse dimensions, measuring 5.5 cm. Degenerative changes are seen in the spine. RIGHT LOWER EXTREMITY: Vascular calcifications are seen within the femoral arteries, but the right c ommon femoral artery, as well as the profunda femoral artery, do appear patent. There are stents see n within the right superficial femoral artery, with the stent at the level of the mid thigh and exten ding to near the level of the adductor canal. The popliteal artery, at the level of the distal porti on of the femoral component, is completely obscured due to artifact. The popliteal artery, where vis ualized, is patent. The right anterior tibial artery occludes in the proximal calf, and there is two vessel runoff to the right lower extremity via the peroneal and posterior tibial arteries. LEFT LOWER EXTREMITY: There is dense, calcified, atherosclerotic plaque seen in the left common femo ral artery, which obscures the lumen, and there is at least mild and possibly moderate narrowing of t he left common femoral artery in this region. There is moderate narrowing at the origin of the profu nda femoral artery. Mild narrowing at the origin of the left superficial femoral artery. There is a vascular stent seen within the mid and distal left lower extremity superficial femoral artery. This does appear patent. There is obscuration of a portion of the left popliteal artery at the level of the femoral component of the left knee prosthesis, but the visualized left common femoral artery is p atent. The left anterior tibial artery occludes in the proximal calf. There is two vessel runoff to the left lower extremity via the peroneal and posterior tibial arteries. IMPRESSION: 1. Atherosclerotic plaque and calcification within the abdominal aorta, iliac arteries, and involvin g the lower extremity arterial vessels. 2. Stents within the superficial femoral arteries bilaterally, which do appear patent. There is obs curation of a small portion of each popliteal artery due to significant streak artifact from bilatera l knee prostheses. 3. Two vessel runoff to the bilateral lower extremities via the peroneal and posterior tibial arteri es. The anterior tibial arteries occlude in the proximal calf, bilaterally. 4. Nonobstructing left renal calculus. 5. Findings likely related to a transient hepatic arterial difference within the right hepatic lobe, secondary to the arterial phase of imaging. 6. Post cholecystectomy changes. 7. Subcentimeter, epr-xqwlf-hk-characterize, hypodense lesion in the left hepatic lobe. 8. Enlargement of the prostate gland. POS: [facility]
[2018-02-03] MEDS ORDERED: Iopamidol 370 76% 100 ML VIAL ONE (14:16)
== END 2018-02-03 08:25 | disposition home or self-care (01) ==
LOC: CT 08:24
PROVIDERS: ATTEND Internal Medicine Cardiovascular Disease
DX: I70.211 Atherosclerosis of native arteries of extremities with intermittent claudication, right leg (principal); I77.1 Stricture of artery; Z98.890 Other specified postprocedural states; I70.0 Atherosclerosis of aorta
CPT/HCPCS: 75635

== ENCOUNTER 2018-04-03 13:30 | Inpatient (IN) | payer BC ==
[2018-04-03 14:13] VITALS: BMI 29.7
[2018-04-04] MEDS ORDERED: Protamine Sulfate 50 MG/5 ML VIAL ONE (09:13)
[2018-04-04] MEDS ORDERED: Heparin 5,000 UNITS/ML VIAL ONE (09:13)
[2018-04-04] MEDS ORDERED: Bupivacaine HCl 0.5%/Epinephrine 1:200,000/PF 30 ml Vial ONE (09:13)
[2018-04-04] MEDS ORDERED: Fentanyl 100 MCG/2 ML VIAL ONE ×2 (09:15)
[2018-04-04] MEDS ORDERED: CEFAZOLIN 2 GM/50 ML BAG ONE (09:27)
[2018-04-04] MEDS ORDERED: Ondansetron HCl/PF 4 MG/2 ML Vial IVP PRN (11:49)
[2018-04-04] MEDS ORDERED: Promethazine HCl 25 MG/ML VIAL IM PRN ×2 (11:49→12:00)
[2018-04-04] MEDS ORDERED: Promethazine HCl 25 MG/ML VIAL SLOW IVP PRN (11:49)
[2018-04-04] MEDS ORDERED: Zolpidem Tartrate 5 MG TAB PO PRN (12:00)
[2018-04-04] MEDS ORDERED: Ondansetron PF 4 MG/2 ML Vial IVP PRN (12:00)
[2018-04-04] MEDS ORDERED: Acetaminophen 325 MG TAB PO PRN (12:00)
[2018-04-04] MEDS ORDERED: Fentanyl 100 MCG/2 ML VIAL SLOW IVP PRN ×2 (12:00)
[2018-04-04] MEDS ORDERED: HYDROcodone/Acetaminophen 5/325 mg Tablet PO PRN (12:00)
--- NOTE | 2018-04-04 14:24 | OP ---
DATE OF PROCEDURE: 04/04/2018 PREOPERATIVE DIAGNOSIS: Left common femoral artery stenosis. POSTOPERATIVE DIAGNOSES: Left common femoral artery stenosis with plaque involving the orifices of the SFA and deep femoral branches. PROCEDURE: Extended left common femoral endarterectomy with bovine patch angioplasty. SURGEON: Amaury Edwards M.D. ANESTHESIA: General. ESTIMATED BLOOD LOSS: Minimal. PROCEDURE IN DETAIL: After adequate anesthesia had been obtained, ultrasound was used to isolate the proposed area of surgery. The patient was then prepped and draped. Incision was made. The patient was quite deep in this area with about 5 cm of adipose tissue prior to arrival to the inguinal ligament. Dissection was then carried distally into the superficial femoral artery. Adjacent clamp was placed up under the inguinal ligament, clamping the external iliac artery and controlling the 2 posterior profunda branches with a clamp. The superficial femoral aorta clamp and the lateral profunda branch with a loop. Arteriotomy was then performed and endarterectomy was performed from the iliac to the deep femoral branches and extending on the sup femoral artery. A bovine patch was used to close the arteriotomy extending from the inguinal ligament on to the superficial femoral artery about 1.5 cm. Following this the , vessels were back flushed and forward flushed, the area irrigated and flow restored down the deep femoral arteries and then the superficial femoral artery. Protamine was given to reverse the heparin. We obtain good hemostasis. The deep layers were closed with interrupted [id number]-[id number]-vjdhl 5-0 sutures. JADEN
[2018-04-04] MEDS: Sodium Chloride 0.9% 1,000 ML IV SCH (14:59)
[2018-04-04] MEDS ORDERED: Ondansetron PF 4 MG/2 ML Vial ONE (16:03)
[2018-04-04] MEDS ORDERED: Glycopyrrolate 0.2 MG/ML 5 ML SYRINGE ONE (16:03)
[2018-04-04] MEDS ORDERED: PROPOFOL 200 MG/20 ML VIAL ONE (16:03)
[2018-04-04] MEDS ORDERED: ePHEDrine/0.9% NaCl/PF SYRINGE 50 mg/10 ml ONE (16:03)
[2018-04-04] MEDS ORDERED: Lidocaine 1% PF 5 ML VIAL ONE (16:03)
[2018-04-04] MEDS ORDERED: Heparin 10,000 UNITS/ 10 ML VIAL ONE (16:03)
[2018-04-04] MEDS: HYDROcodone/Acetaminophen 5/325 mg Tablet PO PRN ×2 (16:35→20:50)
[2018-04-04] MEDS: CEFAZOLIN 2 GM/50 ML BAG IVPB SCH (17:52)
[2018-04-04] MEDS ORDERED: Pramipexole Di-HCl 1 MG TAB PO SCH (21:00)
[2018-04-04] MEDS ORDERED: Tamsulosin HCl 0.4 MG CAP PO SCH (21:00)
[2018-04-05] MEDS: CEFAZOLIN 2 GM/50 ML BAG IVPB SCH (01:59)
[2018-04-05] MEDS: HYDROcodone/Acetaminophen 5/325 mg Tablet PO PRN ×2 (01:59→06:19)
[2018-04-05] MEDS: Sodium Chloride 0.9% 1,000 ML IV SCH (07:12)
--- NOTE | 2018-04-05 07:23 | DIS ---
This is a 63-year-old who underwent a left common femoral endarterectomy on the day prior. His posto perative course was unremarkable. He did have a posterior tibial pulse, which had not been palpable preoperatively. He had some mild erythema around his incision at the day of discharge which was the day following surgery with no peripheral edema. He has no complaints. He is ambulating and voiding well. He will be followed up in 2-3 weeks. Consideration is being given by Dr. Enriquez to rico bello in-stent stenosis distally in that leg.
[2018-04-05 08:19] VITALS: BP 115/73; TEMP 98.4
[2018-04-05] MEDS ORDERED: FLUoxetine HCl 20 MG CAP PO SCH (09:00)
[2018-04-05] MEDS ORDERED: Clopidogrel Bisulfate 75 MG TAB PO SCH (09:00)
[2018-04-05] MEDS ORDERED: Lisinopril 20 MG TAB PO SCH (09:00)
[2018-04-05] MEDS ORDERED: Rosuvastatin 20 MG TAB PO SCH (09:00)
[2018-04-05] MEDS ORDERED: Bupropion 150 MG XL TAB PO SCH (09:00)
[2018-04-05] MEDS ORDERED: Methimazole 5 MG TAB PO SCH (09:00)
== END 2018-04-05 09:42 | disposition home or self-care (01) | DRG 254 ==
LOC: SURG A 04-04 08:37 → SURG B 04-04 14:06
PROVIDERS: ADMIT Thoracic Surgery (Cardiothoracic Vascular Surgery); ATTEND Thoracic Surgery (Cardiothoracic Vascular Surgery)
PROC: 03CJ0ZZ Extirpation of Matter from Left Common Carotid Artery, Open Approach (ICD-10-PCS; principal; 2018-04-04)
PROC: 03UJ0KZ Supplement Left Common Carotid Artery with Nonautologous Tissue Substitute, Open Approach (ICD-10-PCS; 2018-04-04)
DX: I70.212 Atherosclerosis of native arteries of extremities with intermittent claudication, left leg (principal); Z01.818 Encounter for other preprocedural examination
CPT/HCPCS: 80048; 85027; 86850; 86900; 86901; 93005; 93010; J0670; J1644; J2001; J2405; J2704; J2720; J3010

== ENCOUNTER 2018-04-03 13:55 | Outpatient (CLI) | payer BC ==
[2018-04-03 15:05] LABS: Hemoglobin 15.7 g/dL (14.0-18.0); Mean Corpuscular HGB CONC 32.6 g/dL (32.0-36.0); Mean Corpuscular Hemoglobin 30.2 pg (27.0-31.0); Mean Corpuscular Volume 92.5 fL (78.0-98.0); Mean Platelet Volume 7.2 fL (7.4-10.4); Platelet Count 295 thou/uL (130-400); RBC Distribution Width 12.8 % (11.5-14.5); Red Blood Cell (RBC) Count 5.21 mill/uL (4.70-6.10); White Blood Cell (WBC) Count 7.6 thou/uL (4.8-10.8)
[2018-04-03 15:29] LABS: Anion Gap 10 mmol/L (10-20); BUN (Urea Nitrogen) 17 mg/dL (8.4-25.7); Calc. Creatinine Clearance 0 mL/min (70-130); Calcium 9.1 mg/dL (7.8-10.44); Carbon Dioxide 29 mmol/L (23-31); Chloride 105 mmol/L (98-107); Estimated GFR-MDRD 77; Glucose 104 mg/dL (80-115); Potassium 4.6 mmol/L (3.5-5.1); Sodium 139 mmol/L (136-145)
--- NOTE | 2018-04-04 08:51 | EKG ---
Test Reason : Blood Pressure : / mmHG Vent. Rate : 061 BPM Atrial Rate : 061 BPM P-R Int : 152 ms QRS Dur : 092 ms QT Int : 400 ms P-R-T Axes : 060 076 077 degrees QTc Int : 402 ms Normal sinus rhythm Normal ECG When compared with ECG of 26-JUL-2017 08:56, No significant change was found Confirmed by DR. Concepcion HILL ([id number]) on 04/04/2018 8:50:32 AM Referred By: JESSICA Confirmed By:DR. Concepcion HILL
== END 2018-04-03 13:56 | disposition home or self-care (01) ==
LOC: LABBT 13:55
PROVIDERS: ATTEND Thoracic Surgery (Cardiothoracic Vascular Surgery)
DX: Z01.818 Encounter for other preprocedural examination (principal); I70.202 Unspecified atherosclerosis of native arteries of extremities, left leg
CPT/HCPCS: 80048; 85027; 86850; 86900; 86901; 93005; 93010

== ENCOUNTER 2018-05-19 15:00 | Outpatient (CLI) | payer BC | END 2018-05-19 15:01 | disposition home or self-care (01) | LOC: SLEEPLAB 15:00 | PROVIDERS: ATTEND Family Medicine | DX: G47.33 Obstructive sleep apnea (adult) (pediatric) (principal); F32.9 Major depressive disorder, single episode, unspecified; I10 Essential (primary) hypertension; R06.83 Snoring; R09.02 Hypoxemia | CPT/HCPCS: 95806 ==

== ENCOUNTER 2020-01-29 07:40 | Outpatient (CLI) | payer MEDICARE, OTHER ==
[2020-01-29 14:24] LABS: Hemoglobin 17.2 g/dL (14.0-18.0); Mean Corpuscular HGB CONC 32.8 g/dL (32.0-36.0); Mean Corpuscular Hemoglobin 31.1 pg (27.0-31.0); Mean Corpuscular Volume 94.7 fL (78.0-98.0); Mean Platelet Volume 7.8 fL (7.4-10.4); Platelet Count 246 thou/uL (130-400); RBC Distribution Width 12.6 % (11.5-14.5); Red Blood Cell (RBC) Count 5.53 mill/uL (4.70-6.10); White Blood Cell (WBC) Count 5.8 thou/uL (4.8-10.8)
[2020-01-29 14:42] LABS: INR-International Normal Ratio 0.9; PTT 29.2 sec (22.9-36.1); Prothrombin Time 11.7 sec (12.0-14.7)
[2020-01-29 14:43] LABS: Anion Gap 11 mmol/L (10-20); BUN (Urea Nitrogen) 16 mg/dL (8.4-25.7); Calc. Creatinine Clearance 0 mL/min (70-130); Calcium 9.2 mg/dL (7.8-10.44); Carbon Dioxide 30 mmol/L (23-31); Chloride 104 mmol/L (98-107); Estimated GFR-MDRD 66; Glucose 133 mg/dL (80-115); Potassium 4.4 mmol/L (3.5-5.1); Sodium 141 mmol/L (136-145)
[2020-01-29 14:49] LABS: Bacteria/HPF None Seen HPF (None Seen); Bilirubin Negative (Negative); Blood, Urine Negative (Negative); Clarity Clear (Clear); Glucose, Urine (Dipstick) Normal (Negative); Ketone, Urine Negative (Negative); Leukocyte Negative Leu/uL (Negative); Nitrite Negative (Negative); Protein, Urine (Dipstick) 10 mg/dL (Neg-Trace); Specific Gravity, Urine 1.029 (1.002-1.036); Squamous Epithelial None Seen HPF (0-3); Urobilinogen Normal mg/dL (Less than 2); WBC/HPF 0-3 HPF (0-3)
[2020-01-30 13:01] LABS: SARS-CoV-2 MS2 Positive; SARS-CoV-2 N Gene Negative; SARS-CoV-2 S Gene Negative; SARS-CoV-2 by NAA Not Detected (NotDetected); SARS-CoV-2 orf1ab Negative
--- NOTE | 2020-01-30 20:52 | EKG ---
Test Reason : Blood Pressure : / mmHG Vent. Rate : 056 BPM Atrial Rate : 056 BPM P-R Int : 148 ms QRS Dur : 090 ms QT Int : 416 ms P-R-T Axes : 062 079 073 degrees QTc Int : 401 ms Sinus bradycardia Otherwise normal ECG No previous ECGs available Confirmed by Lona SULLIVAN ([id number]) on 01/30/2020 8:52:12 PM Referred By: TIFF Confirmed By:Lona SULLIVAN
== END 2020-01-29 07:41 | disposition home or self-care (01) ==
LOC: LABBT 07:40
PROVIDERS: ATTEND Urology
DX: Z01.818 Encounter for other preprocedural examination (principal); Z20.828 Contact with and (suspected) exposure to other viral communicable diseases; R97.20 Elevated prostate specific antigen [PSA]; N40.1 Benign prostatic hyperplasia with lower urinary tract symptoms; N52.01 Erectile dysfunction due to arterial insufficiency; I73.9 Peripheral vascular disease, unspecified
CPT/HCPCS: 80048; 81001; 85027; 85610; 85730; 87086; 93005; U0003; 87635; 93010

== ENCOUNTER 2020-02-01 08:05 | Day surgery (SDC) | payer MEDICARE, OTHER ==
[2020-01-29 15:36] VITALS: BMI 33.0
[2020-02-01] MEDS ORDERED: Levofloxacin 500 mg/D5W 100 ml Premix Bag ONE (10:03)
[2020-02-01] MEDS ORDERED: B & O ONE (10:18)
[2020-02-01] MEDS ORDERED: Fentanyl 100 MCG/2 ML VIAL ONE (10:19)
[2020-02-01] MEDS ORDERED: PROPOFOL 200 MG/20 ML VIAL ONE ×2 (11:43→11:45)
[2020-02-01] MEDS ORDERED: Lidocaine 1% PF 5 ML VIAL ONE (11:43)
[2020-02-01] MEDS ORDERED: Phenazopyridine HCl 97.5 MG TABLET ONE (11:58)
--- NOTE | 2020-02-01 14:08 | OP ---
DATE OF PROCEDURE: 02/01/2020 PREOPERATIVE DIAGNOSIS: BPH with urinary obstruction. POSTOPERATIVE DIAGNOSIS: BPH with urinary obstruction. PROCEDURE PERFORMED: UroLift with 4 implants. INDICATION FOR PROCEDURE: Mr. Torres is a 65-year-old white male with BPH and urinary complaints. He is currently on maximal medical therapy. He did not wish to remain on medications and wanted to do the UroLift instead. We discussed risks and benefits, and he has agreed to proceed forward. DESCRIPTION OF PROCEDURE: After identification of armband and verification of consent, the patient was brought back to the operating room, where he underwent total intravenous anesthesia. He was then placed in dorsal lithotomy position and prepped and draped in usual sterile fashion. After appropriate time-out, a 21-Somali rigid cystoscope with visual obturator was introduced per urethra into the bladder. The meatus did require dilation for introduction of the camera atraumatically. Once the cystoscope was introduced into the bladder, the prostate did appear hypertrophic and had previously been demonstrated on outpatient cystoscopy. The visual obturator was switched out for the UroLift implant device. The first implant was placed to the patient's left base of the prostate far enough away from the bladder neck. Anterior and lateral compression were achieved and then the safety released. The blue trigger was fired to deploy the Nitinol needle. The tension was set and the capsular tab was placed with the white trigger. The UroLift was then advanced forward until the white line was in the keyhole and the urethral end piece deployed using the back blue trigger. This was then repeated on the patient's right side toward the base of the prostate. Two additional implants were then placed at the patient's apex of the prostate. At this point, the prostate was wide open. I did not feel there was any need to put additional implants in. Bleeding was noted to be extremely minimal. The cystoscope was then removed. An 18-Somali Cortez catheter was placed with ease into the patient's bladder. 10 mL of sterile water was placed into the balloon. The catheter was left to gravity drainage. B and O suppository were placed in his rectum. The patient was taken out of position, awakened, taken to PACU for recovery in stable condition. COMPLICATIONS: None. ESTIMATED BLOOD LOSS: Minimal. RETAINED TUBES AND DRAINS: 18-Somali Cortez catheter to gravity drainage. SPECIMENS: None. IMPLANTS USED: 4. DISPOSITION: The patient may consider a void trial if his urine is clear enough, we will then plan for followup on an outpatient basis. If the urine is bloody, we will send him home with a catheter and do a voiding trial next week. Job ID: [id number]
== END 2020-02-01 11:25 | disposition home or self-care (01) ==
LOC: SDC 08:05
PROVIDERS: ATTEND Urology
PROC: 0T7D8DZ Dilation of Urethra with Intraluminal Device, Via Natural or Artificial Opening Endoscopic (ICD-10-PCS; principal; 2020-02-01)
DX: N40.1 Benign prostatic hyperplasia with lower urinary tract symptoms (principal); N13.8 Other obstructive and reflux uropathy; I10 Essential (primary) hypertension; M19.90 Unspecified osteoarthritis, unspecified site; E78.5 Hyperlipidemia, unspecified; I73.9 Peripheral vascular disease, unspecified; I48.91 Unspecified atrial fibrillation; R73.03 Prediabetes; Z79.02 Long term (current) use of antithrombotics/antiplatelets; Z79.899 Other long term (current) drug therapy
CPT/HCPCS: C1889; C9740; J1956; J2704; J3010

== ENCOUNTER 2021-10-12 19:00 | Outpatient (CLI) | payer MEDICARE, OTHER | END 2021-10-12 19:01 | disposition home or self-care (01) | LOC: SLEEPLAB 19:00 | PROVIDERS: ATTEND Family Medicine | DX: R06.83 Snoring (principal); F41.9 Anxiety disorder, unspecified; G47.00 Insomnia, unspecified; I10 Essential (primary) hypertension; G47.33 Obstructive sleep apnea (adult) (pediatric); G47.31 Primary central sleep apnea | CPT/HCPCS: 95810 ==

== ENCOUNTER 2021-10-21 19:30 | Outpatient (CLI) | payer MEDICARE, OTHER | END 2021-10-21 19:31 | disposition home or self-care (01) | LOC: SLEEPLAB 19:30 | PROVIDERS: ATTEND Family Medicine | DX: G47.33 Obstructive sleep apnea (adult) (pediatric) (principal); R06.83 Snoring; F41.9 Anxiety disorder, unspecified; G47.00 Insomnia, unspecified; G47.10 Hypersomnia, unspecified; E66.9 Obesity, unspecified; G47.31 Primary central sleep apnea; Z68.32 Body mass index [BMI] 32.0-32.9, adult | CPT/HCPCS: 95811 ==

== ENCOUNTER 2023-01-11 10:18 | Outpatient (CLI) | payer MEDICARE, OTHER ==
[~2023-01-11 10:18] MED LIST: Iopamidol 370 76% 100 ML VIAL ONE
== END 2023-01-11 10:19 | disposition home or self-care (01) ==
LOC: BICCT 10:18
PROVIDERS: ATTEND Internal Medicine Cardiovascular Disease
DX: I73.9 Peripheral vascular disease, unspecified (principal); I70.0 Atherosclerosis of aorta; I70.8 Atherosclerosis of other arteries; K76.89 Other specified diseases of liver; N28.89 Other specified disorders of kidney and ureter; I70.201 Unspecified atherosclerosis of native arteries of extremities, right leg; I77.1 Stricture of artery; Z95.828 Presence of other vascular implants and grafts; Z96.643 Presence of artificial hip joint, bilateral; Z90.49 Acquired absence of other specified parts of digestive tract
CPT/HCPCS: 75635

== ENCOUNTER 2025-01-28 14:47 | Outpatient (CLI) | payer MEDICARE, OTHER ==
[2025-01-28 15:36] LABS: #Basophils 0.04 10x3/uL (0.0-0.2); #Eosinophils 0.17 10x3/uL (0.0-0.7); #Monocytes 0.82 10x3/uL (0.11-0.59); #Neutrophils 3.86 10x3/uL (1.40-6.50); %Basophils 0.5 % (0.0-1.0); %Eosinophils 2.0 % (0.0-10.0); %Lymphocytes 43.2 % (21.0-51.0); %Monocytes 9.5 % (0.0-10.0); %Neutrophils 44.6 % (42.0-75.0); Hematocrit 43.8 % (42.0-52.0); Hemoglobin 14.5 g/dL (14.0-18.0); Mean Corpuscular Hemoglobin 30.4 pg (27.0-31.0); Mean Corpuscular Volume 91.8 fL (78.0-98.0); Platelet Count 282 10x3/uL (130-400); Red Blood Cell (RBC) Count 4.77 mill/uL (4.70-6.10); White Blood Cell (WBC) Count 8.65 10x3/uL (4.8-10.8)
[2025-01-28 15:57] LABS: Anion Gap 9 mmol/L (10-20); BUN (Urea Nitrogen) 10 mg/dL (8.4-25.7); Calc. Creatinine Clearance 0 mL/min (70-130); Calcium 9.2 mg/dL (7.8-10.44); Carbon Dioxide 28 mmol/L (23-31); Chloride 108 mmol/L (98-107); Glucose 90 mg/dL (80-115); Potassium 3.9 mmol/L (3.5-5.1); Sodium 141 mmol/L (136-145)
== END 2025-01-28 14:48 | disposition home or self-care (01) ==
LOC: LABBT 14:47
PROVIDERS: ATTEND Thoracic Surgery (Cardiothoracic Vascular Surgery)
DX: Z01.818 Encounter for other preprocedural examination (principal); I77.1 Stricture of artery
CPT/HCPCS: 80048; 85025; 93005; 93010

== ENCOUNTER 2025-01-28 15:00 | Inpatient (IN) | payer MEDICARE, OTHER ==
[2025-01-30] MEDS ORDERED: Heparin 5,000 UNITS/ML VIAL ONE (13:09)
[2025-01-30] MEDS ORDERED: CEFAZOLIN 2 GM VIAL ONE (13:20)
[2025-01-30] MEDS ORDERED: PROPOFOL 20 ML ONE (13:27)
[2025-01-30] MEDS ORDERED: fentaNYL PF 100 MCG/2 ML SYRINGE ONE (13:27)
[2025-01-30] MEDS ORDERED: Lidocaine 1% PF 5 ML VIAL ONE (13:36)
[2025-01-30] MEDS ORDERED: Heparin 10,000 UNITS/ 10 ML VIAL ONE (14:04)
[2025-01-30] MEDS ORDERED: Ondansetron PF 4 MG/2 ML Vial IVP PRN (15:28)
[2025-01-30] MEDS ORDERED: hydrALAZINE 20 MG/ML VIAL SLOW IVP PRN (15:28)
[2025-01-30] MEDS: Gabapentin 300 MG CAP PO SCH (20:06)
[2025-01-30] MEDS: Acetaminophen 325 MG TAB PO PRN (23:01)
[2025-01-31 08:31] VITALS: BP 124/68; TEMP 97.7
[2025-01-31] MEDS ORDERED: RESVERATROL 250 MG PO SCH (09:00)
[2025-01-31] MEDS ORDERED: PNEUMOC 20-VAL CONJ-DIP CRM/PF 0.5 ML SYRINGE IM ONE (09:00)
[2025-01-31] MEDS ORDERED: Non-Formulary Item 1 EACH (Cinnamon Bark [Cinnamon] 500 MG Capsule) PO SCH (09:00)
[2025-01-31] MEDS: Lisinopril 20 MG TAB PO SCH (09:25)
[2025-01-31] MEDS: BuPROPion XL 150 MG ER.TAB PO SCH (09:31)
[2025-01-31] MEDS: Multivitamin W/ Minerals 1 TAB PO SCH (09:31)
[2025-01-31] MEDS: Rosuvastatin 20 MG TAB PO SCH (09:32)
== END 2025-01-31 09:45 | disposition home or self-care (01) | DRG 254 ==
LOC: SURG A 01-30 11:39 → EDSTATUS 01-30 15:00 → PCU 01-30 16:59
PROVIDERS: ADMIT Thoracic Surgery (Cardiothoracic Vascular Surgery); ATTEND Thoracic Surgery (Cardiothoracic Vascular Surgery)
PROC: 04CK0ZZ Extirpation of Matter from Right Femoral Artery, Open Approach (ICD-10-PCS; principal; 2025-01-30)
PROC: 04UC0KZ Supplement Right Common Iliac Artery with Nonautologous Tissue Substitute, Open Approach (ICD-10-PCS; 2025-01-30)
DX: I73.9 Peripheral vascular disease, unspecified (principal); I77.1 Stricture of artery
CPT/HCPCS: 80048; 85025; 93005; 93010; C1768; J0169; J0665; J1100; J1644; J2704; J2720; J3010